=== PATIENT | male | born 1990 | race Two or more races ===

== ENCOUNTER 2024-07-14 22:15 | Emergency (ER) | payer SELFPAY ==
[2024-07-14 22:37] VITALS: BP 119/76; PULSE 80; RESP 18; TEMP 36.6; O2SAT 99; BMI 33.7
--- NOTE | 2024-07-14 22:50 | PD.EDRME ---
Rapid Medical Screening Exam RME Arrival date/time: 07/14/24 22:15 Chief Complaint: Abdominal Pain Time Seen by Provider: 07/14/24 22:25 Vital signs: Vital Signs Temperature 98 F 07/14/24 22:37 Pulse Rate 80 07/14/24 22:37 Respiratory Rate 18 07/14/24 22:37 Blood Pressure 119/76 07/14/24 22:37 Pulse Oximetry (%) 99 07/14/24 22:37 Oxygen Delivery Method Room Air 07/14/24 22:37 E Narrative: Generalized lower abdominal pain, N/V/D started today
[2024-07-14] MEDS: KETOROLAC INJ 60 MG/2 ML VIAL 30 MG IM (23:00)
[2024-07-14] MEDS: ONDANSETRON ODT 4 MG TABRAP PO (23:01)
[2024-07-14 23:21] LABS: Basophils % (Auto) 0 % (0-2.5); Eosinophils # (Auto) 0.1 Thou/mm3 (0.0-0.5); Eosinophils % (Auto) 1 % (0-10); Hematocrit 49.7 % (41.0-53.0); Hemoglobin 17.7 g/dL (13.5-16.0); Immature Granulocytes % (Auto) 0 % (0-0); Immature Granulocytes Auto 0.05 Thou/mm3 (0.00-0.00); Lymphocytes % (Auto) 7 % (10-50); Mean Corpuscular HGB Conc 35.6 g/dl (31.0-37.0); Mean Corpuscular Hemoglobin 30.4 pg (25.0-35.0); Mean Corpuscular Volume 85 fL (80-100); Monocytes # (Auto) 0.9 Thou/mm3 (0.0-0.8); Monocytes % (Auto) 6 % (0-12); Neutrophils # (Auto) 12.6 Thou/mm3 (1.8-7.7); Neutrophils % (Auto) 86 % (37-80); Nucleated Red Blood Cell % 0 /100 WBC (0); Platelet Count 184 Thou/mm3 (140-440); RDW Standard Deviation 38.4 fL (35.1-43.9); Red Blood Count 5.83 Miln/mm3 (4.50-5.90); White Blood Count 14.6 Thou/mm3 (3.8-10.6)
[2024-07-14 23:41] LABS: Alanine Aminotransferase 37 U/L (10-49); Albumin, Serum 4.8 gm/dL (3.5-5.0); Albumin/Globulin Ratio 1.5 (1.2-2.2); Alkaline Phosphatase 86 U/L (46-116); Anion Gap 9 (7-16); Aspartate Amino Transferase 24 U/L (0-34); BUN/Creatinine Ratio 15 Ratio (12-20); Bilirubin,Total 1.1 mg/dL (0.3-1.2); Blood Urea Nitrogen 16 mg/dL (9-23); Calcium 9.8 mg/dL (8.3-10.6); Calcium (Corrected) 9.8 mg/dL (8.5-10.1); Carbon Dioxide 26.2 mMol/L (20.0-31.0); Chloride 103 mMol/L (98-107); Creatinine (Component) 1.1 mg/dL (0.6-1.3); Estimated Creatinine Clearance 115.7 mL/min (>60); Globulin 3.2 gm/dL (2.3-3.5); Glucose 108 mg/dL (74-106); Lipase 34 U/L (12-53); Osmolality,Calculated 277 (275-295); Potassium 3.8 mMol/L (3.4-5.1); Sodium 138 mMol/L (136-145); eGFR > 60 See Note
[2024-07-14 23:45] LABS: Collection Type, Urine Clean Catch
--- NOTE | 2024-07-14 23:52 | XR_ITS ---
Examination: CT abdomen with intravenous contrast CT pelvis with intravenous contrast 2-D coronal reconstructions 2-D sagittal reconstructions Date and time of exam:July 15, 2024 0208 hrs. Indications: Onset abdominal pain nausea and diarrhea beginning 2000 hrs. Yesterday. CTDI: vol (mGy) 10.8 DLP: (mGycm) 750 Technique: Multiple axial sections of the abdomen and pelvis have been obtained. 64 slice high-resolution scanner used. 3 mm axial sections have been obtained, post intravenous injection 60 cc [id number] 2-D sagittal, coronal reconstructions obtained. Low dose protocols were performed. One or more of the following dose reduction techniques were used; automated exposure control, adjustment of the mA and/or KV according to patient size, use of iterative reconstruction technique. Findings: Fatty infiltration throughout the liver, no focal liver lesions Spleen is not enlarged No gallstones No pancreatic mass or peripancreatic edema Normal adrenal glands No renal or ureteral calculi, no hydronephrosis There is submucosal fatty infiltration involving the entire colon seen with prior colitis Small lymph nodes in the right lower mesentery The appendix, coronal image 74 is fluid-filled, in parts thickened up to 10.5 mm There is mild periappendiceal inflammatory change, for instance coronal image 75, axial image 149 No peritonitis, no pelvic abscess No diverticulitis Normal size prostate Contracted urinary bladder The osseous structures are intact Impression: Appendix is fluid-filled and thickened up to 10.5 mm with mild periappendiceal inflammatory change, the appearance is suspicious for early acute appendicitis The appearance should be clinically correlated
[2024-07-14 23:57] LABS: Bilirubin,Urine Negative (Negative); Blood,Urine Negative (Negative); Clarity,Urine Clear (Clear/Hazy); Color,Urine Yellow (Lt Yel-Yel); Glucose, Urine Negative (Negative); Ketones,Urine Negative (Negative); Leukocyte Esterase,Urine Negative (Negative); Nitrite,Urine Negative (Negative); PH,Urine 8.5 (5.0-7.0); Protein,Urine 1+ (Neg - Trace); RBC,Urine 2 /hpf (0-3); Specific Gravity,Urine 1.035 (1.001-1.035); Squamous Epithelial Cell,Urine 1 /hpf (0-5); WBC,Urine 3 /hpf (0-5)
--- NOTE | 2024-07-15 02:23 | PD.EDABDPN ---
ED Abdominal Pain RME/HPI General Chief Complaint: Abdominal Pain Stated complaint: ABD PAIN,N/V/D Time seen by provider: 07/14/24 22:25 Arrival date/time: 07/14/24 22:15 RME / HPI RME / HPI narrative: Generalized lower abdominal pain, N/V/D started today ----- Dr. Salmeron?s Main ED Evaluation: 34yo male presents to the ED for complaints of nausea and vomiting. Patient states he ate dinner last night and started vomiting. He states it subsided on its own, but returned shortly after and vomited once more. He felt dizzy and lightheaded and was concerned, so he came in for evaluation. He reports associated shakiness, sweating, and diarrhea. He denies any fever, chills or any other associated symptoms. Denies any sick contacts. Denies any previous abdominal surgeries. No known allergies. Related Data Previous Rx's ?Medication ?Instructions ?Recorded famotidine 20 mg tablet (Pepcid AC 20 mg PO QDAY 10 days #10 tabs 07/15/24 Maximum Strength) ondansetron 4 mg disintegrating 4 mg PO Q6H PRN nausea and 07/15/24 tablet vomiting 4 days #14 tabs Allergies Allergy/AdvReac Type Severity Reaction Status Date / Time No Known Allergies Allergy Verified 07/14/24 23:52 Review of Systems Review of Systems Systems Reviewed: All systems reviewed, normal except as documented Past Medical History Past Medical History CARDIAC: Negative Cardiac Disorders RESPIRATORY: Negative Asthma GENITOURINARY: Negative Renal Disease ENDOCRINE: Negative Diabetes Mellitus Type 2 HEMATOLOGIC: Negative Sickle Cell Disease Social History SMOKING STATUS: Never smoker ED Exam Narrative Physical exam: GENERAL APPEARANCE: alert and oriented x 4, well-developed, well-nourished, no acute distress VITALS: All vitals were reviewed and the pulse ox is 99% on room air, which is normal according to my interpretation. HEENT: Normocephalic, atraumatic; pupils equal, round, reactive to light; EOMI; mucous membranes pink, moist; oropharynx clear NECK: Supple LUNGS: CTABL; no wheezes, no rales, no rhonchi HEART: Regular rate, regular rhythm; normal S1, S2; no murmurs ABDOMEN: non distended; normal BS; soft, no tenderness, no guarding, no rebound; no masses, no organomegaly, no hernia BACK: no CVA tenderness EXTREMITIES: atraumatic; no edema NEUROLOGIC: awake; alert and oriented x4; cranial nerves II-XII grossly intact; no focal sensory or motor deficits PSYCHIATRIC: appropriate mood and affect SKIN: warm, dry, normal color; no rashes Course Course Course Narrative: Per teleradiology, the patient has acute appendicitis. On re-examination at 0245, the patient does not have any RLQ tenderness on deep palpation and states he is very hungry. Patient is tolerating fluids. Patient given strict return precautions for any worsening symptoms or other concerns. Patient verbalized understanding. Quality Measures none Orders Category Date Time Status CT Screening NOW Care 07/14/24 23:52 Active Insert IV NOW Care 07/15/24 00:[address] abdomen pelvis w con Stat Exams 07/14/24 23:52 Taken CBC Stat Lab 07/14/24 23:04 Completed CMP [Comprehensive Metabolic Panel] Stat Lab 07/14/24 23:04 Completed Lipase Stat Lab 07/14/24 23:04 Completed UA [Urinalysis] Stat Lab 07/14/24 23:42 Completed Ketorolac Inj [Toradol Inj] Med 07/14/24 22:49 Discontinued 30 mg IM X1 ONE Ondansetron Odt [Zofran Odt] Med 07/14/24 22:49 Discontinued 4 mg PO X1 ONE Vital Signs Vital signs: Vital Signs Temperature 98 F 07/14/24 22:37 Pulse Rate 80 07/14/24 22:37 Respiratory Rate 18 07/14/24 22:37 Blood Pressure 119/76 07/14/24 22:37 Pulse Oximetry (%) 99 07/14/24 22:37 Oxygen Delivery Method Room Air 07/14/24 22:37 Abdominal Pain MDM MDM Narrative MDM Narrative:: Scribe Attestation: 07/15/24 - Kayla iGlliam am scribing for and in the presence of Dr. Salmeron. Patient data External records reviewed:: [facility] previous records (Per chart review, patient has no previous ED visits or admissions to this facility.) Clinical information provided by:: patient Social determinants that could affect healthcare access:: none Patient has the following chronic illnesses:: none How is presenting disease/condition affected by chronic disease/condition?: no chronic disease Evaluation data The following diagnostics were reviewed and interpreted by me:: lab results and radiology exam(s) Lab and/or radiology exams considered but not ordered:: none Interpretation Summary: WBC count is elevated at 14.6, CMP is normal, Lipase is normal, UA is unremarkable, according to my interpretation. ---- Telerad Preliminary Report Draft Patient: SAVI GONSALES Record#: [id number] Birthdate: 1990 Age/Sex: 34 / M Location: [facility] Attending Dr: Ordering Physician: Date of Service: Procedure(s): Accession Number(s): cc: ~ CT scan of the abdomen and pelvis with intravenous contrast (axial sections with sagittal and coronal reformats) July 15, 2024 0208 hours Clinical History: lower abd pain, n/v Findings: The appendix is thickened, measuring 12 mm (coronal images 74/160) with mild wall enhancement and periappendiceal fat stranding. There is no free fluid or free air. No evidence of bowel obstruction. There is submucosal fatty infiltration of the entire colon, likely related to prior inflammation. The liver, gallbladder, spleen, pancreas, adrenals and kidneys are unremarkable. The urinary bladder is incompletely distended at the time of the examination. The osseous structures are unremarkable. The lung bases are clear. Impression: Acute appendicitis without perforation or abscess. Discussion Details: Results verbally communicated to : Dr. Salmeron at 02:38 AM 07/15/2024 Report Electronically Signed By: Mira Donnelly 07/15/2024 2:43:16 AM [EST] Medications / Prescriptions Medications or Prescriptions considered but not ordered:: none Medication administrations:: Medication Administration History Discontinued Medications Ketorolac Tromethamine (Ketorolac Inj 60 Mg/2 Ml Vial) 30 mg IM X1 ONE Stop: 07/14/24 22:50 Last Admin: 07/14/24 23:00 Dose: 30 mg Documented By: DENA Ondansetron HCl (Ondansetron Odt 4 Mg Tabrap) 4 mg PO X1 ONE; Protocol Stop: 07/14/24 22:50 Last Admin: 07/14/24 23:01 Dose: 4 mg Documented By: DENA see above Consultations Consultation(s) initiated? (list below): No Diagnosis Differential diagnosis abdominal pain: other (viral gastroenteritis, E. coli, shigella, salmonella, Influenza) Most likely diagnosis given after review of the tests above:: vomiting, diarrhea Admission Indicated Admission indicated?: not indicated Explain why admission is indicated or not indicated:: Admission criteria not met. Patient is stable for outpatient follow-up. Admission Request Was there a request for admission?: No Disposition Plan Disposition Plan: Discharge Discharge Attestation Discharge Attestation: The patient and all family members were given an opportunity to ask questions and understood the discharge instructions. Discharge instructions specifically effects, indications for sooner follow up or return to the emergency department, and the expected course of current diagnosis. Patient condition: Stable Discharge Plan Plan Patient Disposition: HOME (Self Care) Disposition Comment: Stable for discharge Patient condition on transfer: Stable Prescriptions/Referrals Prescriptions/Med Rec: New ondansetron 4 mg tablet,disintegrating 4 mg PO Q6H PRN (Reason: nausea and vomiting) 4 Days Qty: 14 0RF famotidine [Pepcid AC Maximum Strength] 20 mg tablet 20 mg PO QDAY 10 Days Qty: 10 0RF Referrals: No Primary/Family,Physician [Primary Care Provider] - In 1 week Problem List Clinical Impression: Vomiting, Diarrhea Patient/Caregiver Discharge Instructions Discharge Activity: activity as tolerated Diet Instructions: Drink a lot of fluids, you should eat bland foods. Nothing spicy and nothing greasy or fatty. Education Materials: Self-Care for Vomiting and Diarrhea, ED Diet for Vomiting or ..., ED Vomiting and Diarrhea ... Additional Instructions: You should return to the ER if you are feeling like you are not improving within 24 hours or if you are worsening in any way and we will help you Please follow-up with your primary care doctor within the next several days. Print Language: Hungarian Stand Alone Forms: Theresa Award Info., Patient Portal Info Letter
--- NOTE | 2024-07-15 02:43 | PRELIM_ITS ---
CT scan of the abdomen and pelvis with intravenous contrast (axial sections with sagittal and coronal reformats) July 15, 2024 0208 hours Clinical History: lower abd pain, n/v Findings:The appendix i s thickened, measuring 12 mm (coronal images 74/160) with mild wall enhancement and periappendiceal f at stranding. There is no free fluid or free air. No evidence of bowel obstruction. There is submucos al fatty infiltration of the entire colon, likely related to prior inflammation. The liver, gallbladd er, spleen, pancreas, adrenals and kidneys are unremarkable.The urinary bladder is incompletely diste nded at the time of the examination. The osseous structures are unremarkable.The lung bases are clear .Impression:Acute appendicitis without perforation or abscess.Discussion Details: Results verbally c ommunicated to : Dr. Salmeron at 02:38 AM 07/15/2024 Report Electronically Signed By: Mira Donnelly 2024 2:43:16 AM [EST]
[2024-07-15 03:00] VITALS: RESP 18
== END 2024-07-15 03:02 | disposition home or self-care (01) ==
PROVIDERS: Physician Assistant; Emergency Provider Emergency Medicine
DX: R11.2 Nausea with vomiting, unspecified (principal); R19.7 Diarrhea, unspecified
CPT/HCPCS: 36415; 74177; 80053; 81001; 83690; 85025; 96372; 99285; A4649; J1885; Q0162; Q9967

== ENCOUNTER 2024-07-15 04:04 | Emergency (ER) | payer OTHER, SELFPAY ==
[2024-07-15 04:13] VITALS: BP 137/84; PULSE 97; RESP 20; TEMP 36.9; O2SAT 98
--- NOTE | 2024-07-15 04:16 | PD.EDNV ---
Nausea/Vomit./Diarrhea-RME/HPI General Chief complaint: Abdominal Pain Stated complaint: ABD PAIN,NAUSEATED Time Seen by Provider: 07/15/24 04:17 Arrival date/time: 07/15/24 04:04 RME / HPI RME / HPI Narrative: Dr. Salmeron?s Main ED Evaluation: 34yo male presents to the ED for complaints of nausea and vomiting. 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 He states he ate 2 chocolate donuts and drank a Gatorade, reporting when he got home, he started feeling lightheaded again and had an emetic episode, so he came in for re-evaluation. He denies any abdominal pain or any other associated symptoms. No known allergies. Related Data Previous Rx's ?Medication ?Instructions ?Recorded famotidine 20 mg tablet (Pepcid AC 20 mg PO QDAY 10 days #10 tabs 07/15/24 Maximum Strength) ondansetron 4 mg disintegrating 4 mg PO Q6H PRN nausea and 07/15/24 tablet vomiting 4 days #14 tabs Allergies Allergy/AdvReac Type Severity Reaction Status Date / Time No Known Allergies Allergy Verified 07/14/24 23:52 Review of Systems Review of Systems Systems Reviewed: All systems reviewed, normal except as documented Past Medical History Past Medical History CARDIAC: Negative Cardiac Disorders RESPIRATORY: Negative Asthma GENITOURINARY: Negative Renal Disease ENDOCRINE: Negative Diabetes Mellitus Type 2 HEMATOLOGIC: Negative Sickle Cell Disease Social History SMOKING STATUS: Never smoker ED Exam Narrative Physical exam: GENERAL APPEARANCE: alert and oriented x 4, well-developed, well-nourished, no acute distress VITALS: All vitals were reviewed and the pulse ox is 98% on room air, which is normal according to my interpretation. HEENT: Normocephalic, atraumatic; pupils equal, round, reactive to light; EOMI; mucous membranes pink, moist; oropharynx clear NECK: Supple LUNGS: CTABL; no wheezes, no rales, no rhonchi HEART: Regular rate, regular rhythm; normal S1, S2; no murmurs ABDOMEN: non distended; normal BS; soft, no tenderness, no guarding, no rebound; no masses, no organomegaly, no hernia BACK: no CVA tenderness EXTREMITIES: atraumatic; no edema NEUROLOGIC: awake; alert and oriented x4; cranial nerves II-XII grossly intact; no focal sensory or motor deficits PSYCHIATRIC: appropriate mood and affect SKIN: warm, dry, normal color; no rashes Course Course Course Narrative: The patient was placed in ED observation care at 07/14/24 at 0420 hours. The patient was placed in ED observation care because of worsening nausea and vomiting, and potential development of abdominal pain related to acute appendicitis. The patients past medical history, social history, and family history were reviewed. The plan of care will include serial examinations. 0538: Patient is pending IV medications at this time. 0600: Care signed out to Dr. Smith (emergency physician). Past medical, surgical, social and family history reviewed. Vitals and home medications reviewed. Results and treatment plan discussed. They will assume the care of the patient at this time and will follow the patient, pending labs and re-evaluation. Quality Measures none Orders Category Date Time Status IV [Insert IV] NOW Care 07/15/24 05:07 Active CBC Stat Lab 07/15/24 05:07 Ordered CMP [Comprehensive Metabolic Panel] Stat Lab 07/15/24 05:08 Ordered Lipase Stat Lab 07/15/24 05:08 Ordered DiphenhydrAMINE INJ [Benadryl Inj] Med 07/15/24 05:07 Discontinued 12.5 mg IVP X1 ONE Metoclopramide Inj [Reglan Inj] Med 07/15/24 05:07 Discontinued 10 mg IVP X1 ONE Sodium Chloride 0.9% 1000 ml [Ns] 1,000 ml Med 07/15/24 05:07 Active IV 999 mls/hr Vital Signs Vital signs: Vital Signs Temperature 98.4 F 07/15/24 04:13 Pulse Rate 97 07/15/24 04:13 Respiratory Rate 20 07/15/24 04:13 Blood Pressure 137/84 H 07/15/24 04:13 Pulse Oximetry (%) 98 07/15/24 04:13 Oxygen Delivery Method Room Air 07/15/24 04:13 Nausea/Vomiting/Diarrhea MDM Narrative MDM Narrative:: Scribe Attestation: 07/15/24 - Kayla Gilliam am scribing for and in the presence of Dr. Salmeron. 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 Medications / Prescriptions Medications / Prescriptions considered but not ordered:: none Medication administrations:: Medication Administration History Sodium Chloride (Ns) 1,000 mls @ 999 mls/hr IV .Q1H1M ONE Stop: 07/15/24 06:07 Discontinued Medications Diphenhydramine HCl (Diphenhydramine Inj 50 Mg/Ml Vial) 12.5 mg IVP X1 ONE Stop: 07/15/24 05:08 Metoclopramide HCl (Metoclopramide Inj 5 Mg/Ml Vial 2 Ml) 10 mg IVP X1 ONE; Protocol Stop: 07/15/24 05:08 see above Consultations Consultation(s) initiated? (list below): No Diagnosis Nausea Differential Diagnosis: other (viral gastroenteritis, E. coli, shigella, salmonella, Influenza, appendicitis) Most likely diagnosis given after review of the tests above:: intractable vomiting Admission Indicated Admission indicated?: not indicated Explain why admission is indicated or not indicated:: labs and re-evaluation pending at signout. Admission Request Was there a request for admission?: No Disposition Plan Disposition Plan: other (specify) (Signed out to Dr. Smith at 0600 pending labs and re-evaluation.) Discharge Plan Prescriptions/Referrals Prescriptions/Med Rec: No Action ondansetron 4 mg tablet,disintegrating 4 mg PO Q6H PRN (Reason: nausea and vomiting) 4 Days Qty: 14 0RF famotidine [Pepcid AC Maximum Strength] 20 mg tablet 20 mg PO QDAY 10 Days Qty: 10 0RF Referrals: No Primary/Family,Physician [Primary Care Provider] - In 1 week Problem List Clinical Impression: Intractable vomiting Patient/Caregiver Discharge Instructions Print Language: Belarusian
[2024-07-15] MEDS: METOCLOPRAMIDE INJ 5 MG/ML VIAL 2 ML 10 MG IVP (05:44)
[2024-07-15] MEDS: DiphenhydrAMINE INJ 50 MG/ML VIAL 12.5 MG IVP (05:45)
[2024-07-15] MEDS: SODIUM CHLORIDE 0.9% 1000 ML 1,000 ML 999 ML IV (05:45)
[2024-07-15 05:51] LABS: Basophils % (Auto) 0 % (0-2.5); Eosinophils % (Auto) 0 % (0-10); Hematocrit 49.5 % (41.0-53.0); Hemoglobin 17.7 g/dL (13.5-16.0); Immature Granulocytes % (Auto) 0 % (0-0); Immature Granulocytes Auto 0.05 Thou/mm3 (0.00-0.00); Lymphocytes # (Auto) 0.4 Thou/mm3 (1.0-4.8); Lymphocytes % (Auto) 3 % (10-50); Mean Corpuscular HGB Conc 35.8 g/dl (31.0-37.0); Mean Corpuscular Hemoglobin 30.5 pg (25.0-35.0); Mean Corpuscular Volume 85 fL (80-100); Monocytes # (Auto) 0.9 Thou/mm3 (0.0-0.8); Monocytes % (Auto) 7 % (0-12); Neutrophils # (Auto) 12.5 Thou/mm3 (1.8-7.7); Neutrophils % (Auto) 90 % (37-80); Nucleated Red Blood Cell % 0 /100 WBC (0); Platelet Count 195 Thou/mm3 (140-440); RDW Standard Deviation 37.8 fL (35.1-43.9); Red Blood Count 5.81 Miln/mm3 (4.50-5.90); White Blood Count 13.9 Thou/mm3 (3.8-10.6)
[2024-07-15 06:03] VITALS: BP 123/85; PULSE 91; RESP 20; TEMP 36.5; O2SAT 95
[2024-07-15 06:19] LABS: Alanine Aminotransferase 37 U/L (10-49); Albumin, Serum 4.7 gm/dL (3.5-5.0); Albumin/Globulin Ratio 1.5 (1.2-2.2); Alkaline Phosphatase 83 U/L (46-116); Anion Gap 11 (7-16); Aspartate Amino Transferase 22 U/L (0-34); BUN/Creatinine Ratio 14 Ratio (12-20); Bilirubin,Total 1.4 mg/dL (0.3-1.2); Blood Urea Nitrogen 19 mg/dL (9-23); Calcium 9.6 mg/dL (8.3-10.6); Calcium (Corrected) 9.6 mg/dL (8.5-10.1); Carbon Dioxide 23.9 mMol/L (20.0-31.0); Chloride 102 mMol/L (98-107); Creatinine (Component) 1.4 mg/dL (0.6-1.3); Globulin 3.2 gm/dL (2.3-3.5); Glucose 138 mg/dL (74-106); Lipase 33 U/L (12-53); Osmolality,Calculated 278 (275-295); Potassium 3.8 mMol/L (3.4-5.1); Sodium 137 mMol/L (136-145); Total Protein 7.9 gm/dL (5.7-8.2); eGFR > 60 See Note
--- NOTE | 2024-07-15 07:15 | EDNOTE_ITS ---
Emergency Room Addendum <Lia Morales - Last Filed: 07/15/24 11:02> Addendum Narrative: At 6 AM on 07/15/2024, the care of the patient was transferred from Dr. Salmeron, see his notes for complete H&P and ED course. I reviewed all diagnostic test results: My interpretation of the CT abdomen is acute appendicitis without perforation or abscess. Blood tests and urine tests At this point, diagnoses include vomiting. Treatment here included Significant improvement 0715: I spoke with surgeon Dr. Tapia. We discussed patients HPI, ED course, labs, and radiology results. States he will come evaluate the patient in the ED. 0815: Dr. Tapia has evaluated the patient in the ED, states during his exam patient had no pain or tenderness. Will review the images with radiologist and call back. 1030: Dr. Tapia has discussed CT results with radiologist Dr. Martinez and don't believe the patient has appendicitis at this time. Roney Smith MD Discharge Instructions from Dr. Smith: 1. After extensive evaluation--including our surgeon seeing you in person and he and our radiologist discussing your abdominal CT scan--our surgeon doesn't believe you have appendicitis. Possibly, you may have very early appendicitis. 2. Take Augmentin in case you have early appendicitis. 3. Your job is to stay hydrated.? Zofran for nausea/vomiting.? Increase oral fluid and maintain clear urine.? If dark or yellow, increase oral fluid. 4. Do not take any medications to stop your diarrhea.? But try to replenish the fluid and electrolytes you are losing. 5. Some good choices are water (but not only water because it will cause electrolyte abnormalities), sports drinks like Gatorade (with less sugar content), coconut water, chicken stock, and other fluid with electrolytes (like Pedialyte). 6. See see our surgeon on 07/18/2024 for recheck and further care. See his contact information, including his phone number, and the discharge papers. 7. Seek immediate medical care with worsening or with any concerns. <Roney Smith MD - Last Filed: 07/26/24 14:44> Addendum Narrative: At 6 AM on 07/15/2024, the care of the patient was transferred from Dr. Salmeron, see his notes for complete H&P and ED course. I reviewed all diagnostic test results: My interpretation of the CT abdomen is possible acute appendicitis without perforation or abscess. Blood tests remarkable for WBC 13.9. At this point, diagnoses include vomiting. On exam, his abdomen is completely benign. 0715: I spoke with surgeon Dr. Tapia. We discussed HPI, ED course, labs, and radiology results. States he will come evaluate the patient in the ED. 0815: Dr. Tapia evaluated the patient in the ED, states during his exam patient had no pain or tenderness. Will review the images with radiologist and call back. 1030: Dr. Tapia discussed CT results with radiologist Dr. Martinez and don't believe the patient has appendicitis at this time. Recommended outpatient followup with him. Based on my best medical judgment, made decision no further evaluation or treatment indicated at this time.? Patient understands and agrees to the discharge instructions customized and printed, see below. Discharge Instructions from Dr. Smith: 1. After extensive evaluation--including our surgeon seeing you in person and he and our radiologist discussing your abdominal CT scan--our surgeon doesn't believe you have appendicitis. Possibly, you may have very early appendicitis. 2. Take Augmentin in case you have early appendicitis. 3. Your job is to stay hydrated.? Zofran for nausea/vomiting.? Increase oral flu id and maintain clear urine.? If dark or yellow, increase oral fluid. 4. Do not take any medications to stop your diarrhea.? But try to replenish the fluid and electrolytes you are losing. 5. Some good choices are water (but not only water because it will cause electrolyte abnormalities), sports drinks like Gatorade (with less sugar content), coconut water, chicken stock, and other fluid with electrolytes (like Pedialyte). 6. See see our surgeon on 07/18/2024 for recheck and further care. See his contact information, including his phone number, and the discharge papers. 7. Seek immediate medical care with worsening or with any concerns. Roney Smith MD
[2024-07-15] MEDS: PIPER/TAZO INJ 3.375 GM in SODIUM CHLORIDE 0.9% (P) 50 ML IV (07:51)
[2024-07-15 08:29] VITALS: BP 103/72; PULSE 107; RESP 18; TEMP 36.7; O2SAT 95
[2024-07-15 10:00] VITALS: BP 132/78; PULSE 98; RESP 18; TEMP 36.8; O2SAT 94
--- NOTE | 2024-07-15 17:55 | PD.SURCONS ---
[facility] Consult details Consult date: 07/15/24 Reason for consultation narrative: This patient is a 34-year-old male who was seen in consultation at the request of emergency room physician for acute appendicitis History of present illness: History of present illness revealed that the patient was in his usual health since yesterday started having vomiting. He had some epigastric discomfort but no pain in the abdomen at all. He has had no diarrhea. He also had similar episode of vomiting after eating some steak 2 days ago. This time his pain started after eating pizza. Patient has had no fever or chills. He denies any abdominal pain even in the upper abdomen. Patient denies any history of major medical problems Past Medical History Past Medical History CARDIAC: Negative Cardiac Disorders RESPIRATORY: Negative Asthma GENITOURINARY: Negative Renal Disease ENDOCRINE: Negative Diabetes Mellitus Type 2 HEMATOLOGIC: Negative Sickle Cell Disease Social History SMOKING STATUS: Never smoker Meds Home Medications and Allergies Allergies Allergy/AdvReac Type Severity Reaction Status Date / Time No Known Allergies Allergy Verified 07/14/24 23:52 Exam Vital Signs Temp Pulse Resp BP Pulse Ox O2 Del Method 98.2 F 98 18 132/78 H 94 L Room Air 07/15/24 10:00 07/15/24 10:00 07/15/24 10:00 07/15/24 10:00 07/15/24 10:00 07/15/24 10:00 Narrative Exam Physical examination revealed a slightly obese male who appeared to be in stated age. His vital signs are normal Routine Cardiovascular Exam Comments: Patient is found to be tachycardic with a heart rate around 102to 120 in the emergency room Routine Abdominal Exam Comments: Examination of the abdomen is totally benign. Repeated examination of the right lower quadrant did not reveal any tenderness. Patient was tested for psoas sign as well as obturator sign which did not elicit any tenderness Routine Exam Comments: Deferred Results Results: Laboratory Laboratory Narrative: Patient's laboratory workup showed WBC of 13.9. His hemoglobin was 17.7 obviously due to dehydration as a result of vomiting Results: Imaging Imaging narrative: CT scan showed enlarged appendix measuring 10 mm in diameter consistent with the early appendicitis Assessment & Plan Additional Assessment Additional comments: Impression: Patient does not clinically seem to have any evidence of appendicitis. Only the CT findings suggestive of appendicitis which may be early according to the radiologist. Plan Plan: I had a lengthy discussion with the patient about the treatment options. I told him that we could treat appendicitis either with surgery or the antibiotic. Since he has no pain and there are no signs of acute appendicitis clinically oral antibiotic and then follow-up is an option. Patient has already received Zosyn 3.375 g and I will continue with oral antibiotics for the next 5 days preferably containing Augmentin. I discussed this with the ER physician Dr. Smith. I told Dr. Smith that I will be glad to follow the patient if he has any more pain. Thank you very much
== END 2024-07-15 11:08 | disposition home or self-care (01) ==
PROVIDERS: Emergency Medicine; Emergency Provider Emergency Medicine
DX: K35.80 Unspecified acute appendicitis (principal)
CPT/HCPCS: 36415; 80053; 83690; 85025; 96361; 96374; 96375; 99284; J1200; J2543; J2765; J7030; J7050